=== PATIENT | female | born 1990 | race Caucasian/White ===

== ENCOUNTER 2017-01-10 09:09 | Outpatient (CLI) | payer MEDICAID ==
[2017-01-10 10:07] LABS: APPEARANCE,URINE SLIGHTLY-CLOUDY; BILIRUBIN,URINE NEGATIVE (NEGATIVE); CALCIUM OXALATE CRYSTALS,URINE TOO NUMEROUS TO CNT /HPF; GLUCOSE, URINE NEGATIVE (NEGATIVE); KETONES,URINE NEGATIVE (NEGATIVE); LEUKOCYTE ESTERASE,URINE NEGATIVE (NEGATIVE); NITRITE,URINE NEGATIVE (NEGATIVE); PROTEIN,URINE NEGATIVE (NEGATIVE); URINE SPECIFIC GRAVITY 1.018; UROBILINOGEN,URINE NEGATIVE mg/dL (<2.0)
[2017-01-10 10:16] LABS: ABSOLUTE EOSINOPHILS # (AUTO) 0.1 10^3/uL (0.0-0.6); ABSOLUTE LYMPHOCYTES (AUTO) 1.6 10^3/uL (0.5-4.7); ABSOLUTE MONOCYTES (AUTO) 0.6 10^3/uL (0.1-1.4); BASOPHILS % (AUTO) 0.3 % (0-2); EOSINOPHILS % (AUTO) 1.4 % (0-6); HEMATOCRIT 30.1 % (36.0-47.0); HEMOGLOBIN 10.3 g/dL (12.0-15.5); HGB HCT DIFFERENCE 0.8; LYMPHOCYTES % (AUTO) 21.7 % (13-45); MEAN CORPUSCULAR HEMOGLOBIN 32.6 pg (27.0-33.4); MEAN CORPUSCULAR HGB CONC 34.1 g/dL (32.0-36.0); MEAN CORPUSCULAR VOLUME 96 fl (80-97); MONOCYTES % (AUTO) 7.8 % (3-13); RED BLOOD COUNT 3.15 10^6/uL (3.72-5.28); RED CELL DISTRIBUTION WIDTH 13.8 % (11.5-14.0); SEGMENTED NEUTROPHILS % (AUTO) 68.8 % (42-78); WHITE BLOOD COUNT 7.3 10^3/uL (4.0-10.5)
[2017-01-10 10:35] LABS: URINE BARBITURATES SCREEN NEGATIVE; URINE METHADONE SCREEN NEGATIVE; URINE OPIATES LOW NEGATIVE; URINE PHENCYCLIDINE SCREEN NEGATIVE
[2017-01-10 11:05] LABS: ALANINE AMINOTRANSFERASE 24 U/L (9-52); ALBUMIN 3.2 g/dL (3.5-5.0); ALKALINE PHOSPHATASE 86 U/L (38-126); ANION GAP 9 (5-19); ASPARTATE AMINO TRANSFERASE 17 U/L (14-36); BILIRUBIN,DIRECT 0.2 mg/dL (0.0-0.4); BILIRUBIN,TOTAL 0.2 mg/dL (0.2-1.3); BLOOD UREA NITROGEN 8 mg/dL (7-20); CARBON DIOXIDE 23 mmol/L (22-30); CHLORIDE 106 mmol/L (98-107); CREATININE RESULT 0.59 mg/dL (0.52-1.25); GLUCOSE 118 mg/dL (75-110); LDH 379 U/L (313-618); SODIUM 137.8 mmol/L (137-145); TOTAL PROTEIN 5.8 g/dL (6.3-8.2); URIC ACID 3.6 mg/dL (2.5-6.2)
[2017-01-10 11:07] LABS: URINE CREATININE 151.9 mg/dL (16-327); URINE PROTEIN 10.7 mg/dL (<12)
== END 2017-01-10 11:55 | disposition home or self-care (01) ==
LOC: LC 09:09
PROVIDERS: ATTEND Obstetrics & Gynecology
PROC: 4A1HXCZ Monitoring of Products of Conception, Cardiac Rate, External Approach (ICD-10-PCS; principal; 2017-01-10)
DX: Z36 Encounter for antenatal screening of mother (principal); Z13.6 Encounter for screening for cardiovascular disorders; Z3A.34 34 weeks gestation of pregnancy
CPT/HCPCS: 36415; 59025; 80053; 80307; 81001; 82570; 83615; 84156; 84550; 85025

== ENCOUNTER 2017-01-25 14:54 | Emergency (ER) | payer MEDICAID ==
[2017-01-25 14:59] VITALS: BP 136/88
[2017-01-25] MEDS ORDERED: DIPHENHYDRAMINE HCL 50 MG CAPSULE PO ONE (16:00)
--- NOTE | 2017-01-25 16:05 | ER Document Report ---
ED Skin Rash/Insect Bite/Abscs - General Chief Complaint: Insect Bite Stated Complaint: POSSIBLE INSECT BITE Time Seen by Provider: 01/25/17 15:21 Mode of Arrival: Ambulatory Information source: Patient Notes: 6-year-old female presents to ED for an insect bite to the left side of her face. She states it was a couple days ago and the swelling has become worse. She states she took Benadryl yesterday and used compresses. She states she is 37 weeks and wanted to make sure that there was no problems with the swelling to her face. She states she is having no complications with the right now that she is preeclamptic and they do plan to take her child by early due to the pre-eclampsia. TRAVEL OUTSIDE OF THE [place] IN LAST 30 DAYS: No - HPI Patient complains to provider of: Insect bite Onset: Other - 2 days ago Onset/Duration: Gradual Quality of pain: Pressure Severity: Mild Pain Level: 2 Skin Character: Other - Swelling to the left side of her face due to an insect bite Quality of rash: Itchy, Painful - Mild Identify cause: Yes - Insect bite Exacerbated by: Denies Relieved by: Denies Similar symptoms previously: No Recently seen / treated by doctor: Yes - Related Data Allergies/Adverse Reactions: No Known Allergies Allergy (Verified 01/25/17 14:56) Past Medical History - General Information source: Patient - Social History Smoking Status: Never Smoker Cigarette use (# per day): No Chew tobacco use (# tins/day): No Smoking Education Provided: No Frequency of alcohol use: None Drug Abuse: None Lives with: Family Family History: Reviewed & Not Pertinent Patient has suicidal ideation: No Patient has homicidal ideation: No - Past Medical History Cardiac Medical History: Reports: Hx Hypertension - Pulmonary Medical History: Reports: None EENT Medical History: Reports: None Neurological Medical History: Reports: None Endocrine Medical History: Reports: Hx Diabetes Mellitus Type 2 - Gestational diabetes Renal/ Medical History: Reports: Hx Ovarian Cysts, Other - pre-eclampsia Malignancy Medical History: Reports: None GI Medical History: Reports: None Musculoskeltal Medical History: Reports None Skin Medical History: Reports None Psychiatric Medical History: Reports: None Traumatic Medical History: Reports: None Infectious Medical History: Reports: None Past Surgical History: Reports: Hx Section - Immunizations Hx Diphtheria, Pertussis, Tetanus Vaccination: Yes Review of Systems - Review of Systems Constitutional: No symptoms reported EENT: No symptoms reported. denies: Throat swelling, Mouth swelling Cardiovascular: No symptoms reported. denies: Dyspnea Respiratory: No symptoms reported Gastrointestinal: No symptoms reported Genitourinary: No symptoms reported Female Genitourinary: No symptoms reported Musculoskeletal: No symptoms reported Skin: Other - Insect bite to the left side of her face with local swelling Hematologic/Lymphatic: No symptoms reported Neurological/Psychological: No symptoms reported -: Yes All other systems reviewed and negative Physical Exam - Vital signs Vitals: Temp Pulse Resp BP Pulse Ox 97.8 F 74 20 136/88 H 100 01/25/17 14:56 01/25/17 14:56 01/25/17 14:56 01/25/17 14:56 01/25/17 14:56 Interpretation: Normal - General General appearance: Appears well, Alert - HEENT Head: Normocephalic, Atraumatic Eyes: Normal Pupils: PERRL Ears: Normal External canal: Normal Tympanic membrane: Normal Sinus: Normal Nasal: Normal Mouth/Lips: Normal Mucous membranes: Normal Pharynx: Normal Neck: Normal Notes: No swelling to the left side of her face from above her lip to below her eye no lip swelling no periorbital edema no swelling to the tongue or mucosa. - Respiratory Respiratory status: No respiratory distress Chest status: Nontender Breath sounds: Normal Chest palpation: Normal - Cardiovascular Rhythm: Regular Heart sounds: Normal auscultation Murmur: No - Abdominal Inspection: Normal Distension: No distension Bowel sounds: Normal Tenderness: Nontender Organomegaly: No organomegaly - Back Back: Normal, Nontender - Extremities General upper extremity: Normal inspection, Nontender, Normal color, Normal ROM , Normal temperature General lower extremity: Normal inspection, Nontender, Normal color, Normal ROM , Normal temperature, Normal weight bearing. No: Jason's sign - Neurological Neuro grossly intact: Yes Cognition: Normal Orientation: AAOx4 Peculiar Coma Scale Eye Opening: Spontaneous Peculiar Coma Scale Verbal: Oriented Peculiar Coma Scale Motor: Obeys Commands Aron Coma Scale Total: 15 Speech: Normal Motor strength normal: LUE, RUE, LLE, RLE Sensory: Normal - Psychological Associated symptoms: Normal affect, Normal mood - Skin Skin Temperature: Warm Skin Moisture: Dry Skin Color: Normal Course - Re-evaluation Re-evalutation: 01/25/17 20:[address] [facility] and he stated it was okay to give her Benadryl at her advanced age of . She is about 37 weeks and plans to have a next week due to preeclampsia. - Vital Signs Vital signs: Temp Pulse Resp BP Pulse Ox 97.8 F 74 20 136/88 H 100 01/25/17 14:56 01/25/17 14:56 01/25/17 14:56 01/25/17 14:56 01/25/17 14:56 Discharge - Discharge Clinical Impression: Insect bite of face with local reaction Qualifiers: Encounter type: initial encounter Qualified Code(s): S00.86XA - Insect bite ( nonvenomous) of other part of head, initial encounter Condition: Stable Disposition: HOME, SELF-CARE Additional Instructions: Insect Bites You have been bitten by an insect. These bites can cause two types of swelling: an initial swelling due to insect saliva or injected poison, and a late reaction due to your body's allergic reaction. This initial local reaction may be uncomfortable but is not dangerous. Often there's an itchy "hive" at the bite location. This is treated with antihistamines, cold compresses, and resting the affected body part. The later reaction often develops about the second day. The entire area becomes very swollen, red, itchy, and tender. This is an allergic reaction. Your body is attacking the leftover insect saliva or venom. This type of allergy is unpleasant, but not dangerous. We treat this swelling with cortisone -type medicine. Sometimes we use antibiotics if we're worried about infection. Antihistamines help with the itch. If you develop a fever, chills, a red streak, or swollen glands in the area of the bite, infection may be starting. Return at once. Diphenhydramine The use of diphenhydramine (Benadryl) has been recommended to control allergic symptoms. The 25 mg strength is available over- the-counter, as well as the elixir. This antihistamine is used for many symptoms. It's useful for itching, watering eyes and nose, allergic swelling, hives, and insect stings. The medication can be repeated four times daily. Age Elixir (12.5 mg/tsp) 25 mg pill 1 yr 1/4 tsp 2-3 yr 1/2 tsp 4-8 yr 1 tsp 9-14 yr 2 tsp one tab adult 1-2 tabs Antihistamines may cause drowsiness, especially with the first dose. Do not operate machinery or drive while under the effects of the medication. Do not combine the medication with alcohol, or with any other medication without talking to your doctor. Ice Packs Apply ice packs frequently against the painful area. Many different schedules are recommended, such as "20 minutes on, 20 minutes off" or "one hour ice, two hours rest." If you need to work, you may need to go longer between ice treatments. You should plan to have the area ice packed AT LEAST one fourth of the time. The ice should be applied over the wrap, tape, or splint, or over a layer of cloth -- not directly against the skin. Some ice bags have a built-in cloth and can be put directly on the skin. FOLLOW-UP CARE: If you have been referred to a physician for follow-up care, call the physician s office for an appointment as you were instructed or within the next two days. If you experience worsening or a significant change in your symptoms, notify the physician immediately or return to the Emergency Department at any time for re-evaluation. Please complete the patient's satisfaction survey if you get one and return. If you do not receive a survey you can go to [facility] website [email or web address] and place your comments about your very good care. Thank you very much. It was a pleasure be in your medical provider today. Referrals: [facility] [Provider Group] - Follow up as needed
== END 2017-01-25 16:15 | disposition home or self-care (01) ==
LOC: ER 14:54
DX: O9A.213 Injury, poisoning and certain other consequences of external causes complicating pregnancy, third trimester (principal); S00.86XA Insect bite (nonvenomous) of other part of head, initial encounter; W57.XXXA Bitten or stung by nonvenomous insect and other nonvenomous arthropods, initial encounter; O14.93 Unspecified pre-eclampsia, third trimester; Z3A.37 37 weeks gestation of pregnancy; Z86.32 Personal history of gestational diabetes
CPT/HCPCS: 99281; J3490

== ENCOUNTER 2017-01-30 05:20 | Inpatient (IN) | payer MEDICAID ==
[2017-01-27 12:02] LABS: APPEARANCE,URINE CLEAR; BILIRUBIN,URINE NEGATIVE (NEGATIVE); GLUCOSE, URINE NEGATIVE (NEGATIVE); KETONES,URINE NEGATIVE (NEGATIVE); LEUKOCYTE ESTERASE,URINE NEGATIVE (NEGATIVE); NITRITE,URINE NEGATIVE (NEGATIVE); PROTEIN,URINE NEGATIVE (NEGATIVE); URINE SPECIFIC GRAVITY 1.016; UROBILINOGEN,URINE NEGATIVE mg/dL (<2.0)
[2017-01-27 13:21] LABS: URINE BARBITURATES SCREEN NEGATIVE; URINE METHADONE SCREEN NEGATIVE; URINE OPIATES LOW NEGATIVE; URINE PHENCYCLIDINE SCREEN NEGATIVE
[2017-01-28 15:01] LABS: ABSOLUTE EOSINOPHILS # (AUTO) 0.2 10^3/uL (0.0-0.6); ABSOLUTE LYMPHOCYTES (AUTO) 1.8 10^3/uL (0.5-4.7); ABSOLUTE MONOCYTES (AUTO) 0.5 10^3/uL (0.1-1.4); ABSOLUTE NEUT (AUTO) 5.1 10^3/uL (1.7-8.2); BASOPHILS % (AUTO) 0.4 % (0-2); EOSINOPHILS % (AUTO) 2.9 % (0-6); HEMATOCRIT 34.8 % (36.0-47.0); HEMOGLOBIN 11.8 g/dL (12.0-15.5); HGB HCT DIFFERENCE 0.6; LYMPHOCYTES % (AUTO) 23.7 % (13-45); MEAN CORPUSCULAR HEMOGLOBIN 32.7 pg (27.0-33.4); MEAN CORPUSCULAR HGB CONC 33.8 g/dL (32.0-36.0); MEAN CORPUSCULAR VOLUME 97 fl (80-97); MONOCYTES % (AUTO) 6.3 % (3-13); RED CELL DISTRIBUTION WIDTH 13.7 % (11.5-14.0); SEGMENTED NEUTROPHILS % (AUTO) 66.7 % (42-78); WHITE BLOOD COUNT 7.7 10^3/uL (4.0-10.5)
[~2017-01-30 05:20] MED LIST: LACTATED RINGERS 1000 ML IV PRN; LIDOCAINE 0.5% INJ-PF (5 MG/ML) 50 ML SDV SUBCUT PRN; RINGERS SOLUTION,LACTATED 2,000 ML IV PRN
[2017-01-30] MEDS ORDERED: MIDAZOLAM 2 MG/2 ML INJ ONE (07:14)
[2017-01-30] MEDS ORDERED: OXYTOCIN/NORMAL SALINE 20 UNIT/1,000 ML RTUINJ ONE (07:14)
[2017-01-30] MEDS ORDERED: OXYTOCIN 10 UNIT/ML VIAL ONE (07:14)
[2017-01-30] MEDS ORDERED: EPHEDRINE SULFATE INJ 50 MG/1 ML AMPULE ONE (07:14)
[2017-01-30] MEDS ORDERED: METHYLERGONOVINE MALEATE INJ/PF 0.2 MG/1 ML AMPULE ONE (07:14)
[2017-01-30] MEDS ORDERED: FENTANYL CITRATE INJ/PF 100 MCG/2 ML AMPUL ONE (07:14)
[2017-01-30] MEDS ORDERED: ACETAMINOPHEN 100 ML IV ONE (07:15)
[2017-01-30] MEDS: CEFAZOLIN 1 GM/D5W RTU 1 GM/50 ML RTUPB IV PRN ×2 (07:45→14:37)
[2017-01-30] MEDS ORDERED: PROMETHAZINE HCL INJ 25 MG/1 ML VIAL IV PRN ×3 (07:57→09:35)
[2017-01-30] MEDS ORDERED: MORPHINE SULFATE 10 MG/ML INJ IV PRN (07:57)
[2017-01-30] MEDS ORDERED: OXYCODONE-ACETAMINOPHEN 5-325 MG TABLET PO PRN ×3 (07:57→09:35)
[2017-01-30] MEDS ORDERED: MEPERIDINE HCL/PF INJ 25 MG/1 ML DISP.SYRIN IV PRN (07:57)
[2017-01-30] MEDS ORDERED: FENTANYL CITRATE INJ/PF 100 MCG/2 ML AMPUL IV PRN ×3 (07:57)
[2017-01-30] MEDS ORDERED: ONDANSETRON HCL INJ/PF 4 MG/2 ML SDV IV PRN (07:57)
[2017-01-30] MEDS ORDERED: DIPHENHYDRAMINE HCL 50 MG/ML VIAL IV PRN (07:57)
[2017-01-30] MEDS ORDERED: ACETAMINOPHEN 100 ML IV PRN (09:35)
[2017-01-30] MEDS ORDERED: MEASLES,MUMPS&RUBELLA VACC/PF 0.5 ML VIAL SUBCUT PRN (09:35)
[2017-01-30] MEDS ORDERED: OXYTOCIN/NORMAL SALINE 1,000 ML IV PRN (09:35)
[2017-01-30] MEDS ORDERED: DIPH/PERTUSS(ACELL)/TETANUS VAC/PF 0.5 ML SYR (>=10YO) IM PRN (09:35)
[2017-01-30] MEDS ORDERED: ACETAMINOPHEN 325 MG TABLET PO PRN (09:35)
--- NOTE | 2017-01-30 09:35 | Brief Operative Note ---
BRIEF OPERATIVE REPORT DATE OF SURGERY: 01/30/17 TIME OF SURGERY: 09:15 PREOPERATIVE DIAGNOSIS: , PUND at 37+1ega, Prior C/S for failure to Progress , PreE POSTOPERATIVE DIAGNOSIS: TONYA - delivered SURGEON: ORLY GONZALEZ FINDINGS: normal bilateral tubes/ovaries, minimal scaring intrabdminal noted, VFI, APgars 8/9, Wigth 6#4oz, cephalic presentation. COMPLICATIONS: None ESTIMATED BLOOD LOSS: 700ml TISSUE REMOVED OR ALTERED: placenta and cord - not sent to pathology TECHNICAL PROCEDURE: Repeat Low transverse Section.
[2017-01-30] MEDS: PRENATAL VITAMIN W-O CA NO5/FE FUMARATE/FA CAPSULE PO SCH (12:34)
[2017-01-30] MEDS: OXYCODONE-ACETAMINOPHEN 5-325 MG TABLET PO PRN ×3 (12:46→23:59)
[2017-01-30] MEDS ORDERED: GLYCOPYRROLATE INJ 0.4 MG/2 ML VIAL ONE (13:24)
[2017-01-30] MEDS ORDERED: ONDANSETRON HCL INJ/PF 4 MG/2 ML SDV ONE (13:24)
[2017-01-30] MEDS ORDERED: KETOROLAC TROMETHAMINE 60 MG/2 ML SDV ONE (13:24)
[2017-01-30] MEDS ORDERED: PHENYLEPHRINE HCL INJ/PF 10 MG/1 ML SDV ONE (13:24)
[2017-01-30] MEDS ORDERED: METOCLOPRAMIDE HCL INJ/PF 10 MG/2 ML SDV ONE (13:24)
[2017-01-30] MEDS: KETOROLAC TROMETHAMINE INJ/PF 30 MG/1 ML SDV IV SCH ×2 (13:50→21:21)
[2017-01-30] MEDS: DOCUSATE SODIUM 100 MG CAPSULE PO SCH (17:21)
[2017-01-30] MEDS: SIMETHICONE 80 MG TAB.CHEW PO PRN ×2 (17:22→23:51)
--- NOTE | 2017-01-30 20:19 | PDOC DELIVERY SUMMARY ---
Delivery Summary - Maternal Hx : IV Hx Para: I Hx # Term Pregnancies: 1 Hx Total # of Abortions (Sponateous & Elective): 2 Number of Living Children: 1 BRITTANEY: 02/19/17 Gestational Age: 37+1 Ruptured Membranes: AROM Time of Rupture: 08:12 Fluids: Clear - Delivery Labor: Not In Labor Presentation: Vertex Heart Rate Monitoring: Done Pre-Operatively Uterine Contraction Monitoring: External Support Person Present: Yes Location: OR : Scheduled, Repeat Placenta: Within Normal Limits Nuchal Cord: No Delivery of Placenta Date: 01/30/17 Delivery of Placenta Time: 08:15 - Medications Type of Anesthesia:: Spinal - Intrapartum Medications Intrapartum Medications: Pitocin - Infant Assess and Care Baby 1 Female Delivery of Date: 01/30/17 Delivery of Infant Time: 08:14 at 1 minute: 8 at 5 minutes: 9 Preprinted Number On Band: [id number] Infant Skin to Skin: No To Nursery At: 08:20 Mode of Transport: Bassinet Delivery Weight: 6.4 kg Infant Delivery Length: 19.5 in - Delivery Personnel State Game Warden: JUNO GUZMAN RN: MONET MCCRAY RN: FANY NOGUEIRA RN: DEREK RETANA MD: ORLY GONZALEZ
[2017-01-31] MEDS: OXYCODONE-ACETAMINOPHEN 5-325 MG TABLET PO PRN ×5 (03:51→22:10)
[2017-01-31] MEDS ORDERED: IBUPROFEN 800 MG TABLET PO SCH (04:00)
[2017-01-31] MEDS: KETOROLAC TROMETHAMINE INJ/PF 30 MG/1 ML SDV IV SCH (05:17)
[2017-01-31 05:36] LABS: HEMATOCRIT 25.5 % (36.0-47.0); MEAN CORPUSCULAR HEMOGLOBIN 32.4 pg (27.0-33.4); MEAN CORPUSCULAR HGB CONC 33.1 g/dL (32.0-36.0); MEAN CORPUSCULAR VOLUME 98 fl (80-97); RED BLOOD COUNT 2.61 10^6/uL (3.72-5.28); WHITE BLOOD COUNT 11.3 10^3/uL (4.0-10.5)
[2017-01-31 05:46] LABS: HEMOGLOBIN 8.5 g/dL (12.0-15.5)
[2017-01-31] MEDS: SIMETHICONE 80 MG TAB.CHEW PO PRN ×2 (07:33→20:23)
[2017-01-31] MEDS: DOCUSATE SODIUM 100 MG CAPSULE PO SCH ×2 (10:14→17:42)
[2017-01-31] MEDS: PRENATAL VITAMIN W-O CA NO5/FE FUMARATE/FA CAPSULE PO SCH (10:14)
[2017-01-31] MEDS: IBUPROFEN 800 MG TABLET PO SCH ×3 (12:19→23:41)
--- NOTE | 2017-01-31 14:08 | PDOC PROGRESS REPORT ---
Subjective-OB Subjective: Post Delivery Day: 26 year old. Denies any needs at this time s/p repeat c section sitting up in bed offers no complaints abdominal binding in place incision dry and intact +flatus, -bm encouraged increased ambulation denies dizziness or weakness despite anemia pt to start taking iron bid with increased iron rich diet- learning verbalized anticipate d/c in AM Physical Exam (OB) Vital Signs: Temp Pulse Resp BP Pulse Ox 97.9 F 89 16 128/93 H 99 01/31/17 11:45 01/31/17 11:45 01/31/17 11:45 01/31/17 11:45 01/31/17 11:45 Intake & Output 01/30/17 01/31/17 02/01/17 06:59 06:59 06:59 Intake Total 3545 Output Total 4200 Balance -655 Weight 66.68 kg - PIH/Pre-Eclampsia DTR's: 1 + Clonus: Negative Headache: Absent Epigastric Pain: No Visual Changes: No - Dressing Removed: Yes Incision: Open, Well Approximated Closure Type: Surgical Glue - Lochia Lochia Amount: Scant < 10 ml Lochia Color: Rubra/Red - Abdomen Description: Round Hernia Present: No Fundal Description: Firm, Midline Fundal Height: u/u - u/2 Objective-Diagnostic Laboratory: 01/31/17 05:25 01/28/17 01/31/17 13:33 05:25 WBC 11.3 H RBC 2.61 L Hgb 8.5 L D Hct 25.5 L MCV 98 H MCH 32.4 MCHC 33.1 RDW 14.0 Plt Count 137 L Blood Type A POSITIVE Antibody Screen POSITIVE
[2017-02-01] MEDS: OXYCODONE-ACETAMINOPHEN 5-325 MG TABLET PO PRN ×4 (03:52→17:41)
[2017-02-01] MEDS: IBUPROFEN 800 MG TABLET PO SCH ×3 (05:54→17:35)
--- NOTE | 2017-02-01 10:12 | PDOC PROGRESS REPORT ---
Subjective-OB Subjective: Post Delivery Day: 26 year old. Denies any needs at this time Doing well, ready to go home, hsb at BS, bottle feeding, voiding, passing gas, eating well, no c/o Physical Exam (OB) Vital Signs: Temp Pulse Resp BP Pulse Ox 98.1 F 82 15 119/73 99 02/01/17 07:57 02/01/17 07:57 02/01/17 07:57 02/01/17 07:57 02/01/17 07:57 Intake & Output 01/31/17 02/01/17 02/02/17 06:59 06:59 06:59 Intake Total 3545 Output Total 4200 Balance -655 - PIH/Pre-Eclampsia DTR's: 1 + Clonus: Negative Headache: Absent Epigastric Pain: No Visual Changes: No - Dressing Removed: No Incision: Well Approximated Closure Type: Surgical Glue - Lochia Lochia Amount: Small 10-25 ml Lochia Color: Rubra/Red - Abdomen Description: Soft Hernia Present: No Fundal Description: Firm, Midline Fundal Height: u/u - u/2 Objective-Diagnostic Laboratory: 01/31/17 05:25 01/28/17 13:33 Blood Type A POSITIVE Antibody Screen POSITIVE Assessment and Plan(PN) - Assessment and Plan (1) Gestational [-induced] hypertension without significant proteinuria , complicating childbirth Is this a current diagnosis for this admission?: Yes (2) Anxiety Is this a current diagnosis for this admission?: Yes (3) Gestational diabetes mellitus Qualifiers: Gestational diabetes mellitus control: diet-controlled Trimester: second trimester Qualified Code(s): O24.410 - Gestational diabetes mellitus in , diet controlled Is this a current diagnosis for this admission?: Yes (4) Delivery by section of full-term Is this a current diagnosis for this admission?: Yes - Time Spent with Patient Time with patient: Less than 15 minutes Medications reviewed and adjusted accordingly: Yes - Disposition Anticipated Discharge: Home Within: Other - home today
--- NOTE | 2017-02-01 10:15 | PDOC DISCHARGE SUMMARY ---
Final Diagnosis Discharge Date: 02/01/17 - Final Diagnosis (1) Gestational [-induced] hypertension without significant proteinuria , complicating childbirth Is this a current diagnosis for this admission?: Yes (2) Anxiety Is this a current diagnosis for this admission?: Yes (3) Gestational diabetes mellitus Is this a current diagnosis for this admission?: Yes (4) Delivery by section of full-term infant Is this a current diagnosis for this admission?: Yes Discharge Data - Discharge Medication Home Medications: Ferrous Sulfate [Iron] 1 tab PO TID 01/10/17 Vit #76/Iron,Carb/FA [Prenatabs Rx Tablet] 1 tab PO DAILY 01/10/17 Tramadol HCl 50 mg PO BID 01/24/17 Ibuprofen [Motrin 800 mg Tablet] 800 mg PO Q6 #60 tablet 02/01/17 Oxycodone HCl/Acetaminophen [Percocet 5-325 mg Tablet] 1 tab PO Q4HP PRN #30 tablet 02/01/17 Reason(s) for Admission: Ceasarean Section-Repeat Procedures: NST, Ultrasound Intrapartum Procedure(s): : Low Cervical, Transverse - Iaeger Data Baby 1 Female Home with Mother: Yes Complications: No - Diagnosis Test Laboratory: Temp Pulse Resp BP Pulse Ox 98.1 F 82 15 119/73 99 02/01/17 07:57 02/01/17 07:57 02/01/17 07:57 02/01/17 07:57 02/01/17 07:57 01/27/17 01/28/17 01/31/17 11:25 13:33 05:25 RBC 3.60 L 2.61 L Hgb 11.8 L 8.5 L D Hct 34.8 L 25.5 L Urine Opiates Screen NEGATIVE - Discharge information/Instructions Discharge Activity: Activity As Tolerated, Balance Activity w/Rest Discharge Diet: As Tolerated, Regular Disposition: HOME, SELF-CARE Follow up with: [facility] in: 1, Weeks
[2017-02-01] MEDS: DOCUSATE SODIUM 100 MG CAPSULE PO SCH ×2 (11:01→17:35)
[2017-02-01] MEDS: PRENATAL VITAMIN W-O CA NO5/FE FUMARATE/FA CAPSULE PO SCH (11:03)
[2017-02-01 16:36] VITALS: BP 140/89
--- NOTE | 2017-03-03 08:08 | Operative Report ---
Operative Report DATE OF SURGERY: 01/30/17 PREOPERATIVE DIAGNOSIS: , PUND at 37+1ega, Prior C/S for failure to Progress , PreE POSTOPERATIVE DIAGNOSIS: TONYA - delivered OPERATION: Repeat Low transverse Section. SURGEON: ORLY GONZALEZ ANESTHESIA: Spinal TISSUE REMOVED OR ALTERED: placenta and cord - not sent to pathology ESTIMATED BLOOD LOSS: 700ml INTRAOPERATIVE FINDINGS: normal bilateral tubes/ovaries, minimal scaring intrabdminal noted, VFI, APgars 8/9, Wigth 6#4oz, cephalic presentation. PROCEDURE: Anesthesia: Spinal Anesthesia provider: [Addis SHEPARD, Senait Agustin CRNA] Estimated blood loss: [700ml] Urine output: [200ml] IV fluids: [1700ml] Indications: [26yo at 37+1ega with A1GDM, PreE and history of prior section presents for repeat section. The Risks benefits and alternatives were reviewed and the patient desires to proceed.] Procedure: The patient was taken to the operating room where spinal anesthesia was obtained and found to be adequate. She was then prepped and draped in the normal sterile fashion and placed in the dorsal supine position with a leftward tilt. A Pfannenstiel skin incision was then made and carried through to the underlying layers of the fascia with the scalpel. The fascia was incised in the midline and the incision extended laterally with the Mathis scissors. The superior aspect of the fascial incision was then grasped with Sturgis clamps elevated and the underlying rectus muscles dissected off [bluntly]. Attention was then turned to the inferior aspect of the fascial incision which in a similar fashion was grasped, tented up with Saurabh clamps, and the rectus muscles dissected off [bluntly]. The rectus muscles were then in the midline and the peritoneum at the amount identified and entered [bluntly]. The peritoneal incision was then extended superiorly and inferiorly with good visualization of the bladder. The bladder blade was inserted and the vesicouterine peritoneum identified grasped with Moldovan pickups and entered sharply with the Metzenbaum scissors. This incision was then extended laterally with the Metzenbaum scissors and a bladder flap created digitally. The bladder blade was then reinserted and the lower uterine segment incised in a transverse fashion with the scalpel. The uterine incision was then extended bluntly. The bladder blade was removed and the 's head was delivered from cephalic presentation atraumatically. The nose and mouth were suctioned and the cord doubly clamped and cut. And the was handed off to waiting pediatricians. The placenta was then delivered spontaneously and the uterus exteriorized and cleared of all clots and debris. The uterine incision was then repaired with 1- 0 Vicryl in a running locked fashion. A second layer of the same suture was used to obtain hemostasis via imbrication of the initial layer. The bladder flap was then repaired with 3-0 chromic in a running fashion. The uterus was returned to the patient's abdomen and Interceed was placed overlying the uterine incision to prevent adhesions. The gutters were cleared of all clots and debris. All operative sites were noted to be hemostatic. The fascia was reapproximated with 0 Vicryl in a running fashion from each lateral edge to the midline. The skin was closed with 3-0 Monocryl in a running subcuticular fashion with overlying Dermabond for additional dressing as well as wound closure. The patient tolerated the procedure well. Sponge lap needle and instrument counts are correct times 2. 2 g of Ancef were given prior to skin incision. The patient was taken to the recovery area awake and in stable condition.
== END 2017-02-01 19:00 | disposition home or self-care (01) | DRG 766 ==
LOC: 2S 05:20
PROVIDERS: ADMIT Student in an Organized Health Care Education/Training Program; ATTEND Student in an Organized Health Care Education/Training Program
PROC: 4A1HXCZ Monitoring of Products of Conception, Cardiac Rate, External Approach (ICD-10-PCS; 2017-01-30)
PROC: 10D00Z1 Extraction of Products of Conception, Low, Open Approach (ICD-10-PCS; principal; 2017-01-30 07:45)
DX: O34.211 Maternal care for low transverse scar from previous cesarean delivery (principal); O13.4 Gestational [pregnancy-induced] hypertension without significant proteinuria, complicating childbirth; O99.344 Other mental disorders complicating childbirth; F41.9 Anxiety disorder, unspecified; O24.420 Gestational diabetes mellitus in childbirth, diet controlled; Z82.3 Family history of stroke; Z80.0 Family history of malignant neoplasm of digestive organs; Z83.3 Family history of diabetes mellitus; Z82.49 Family history of ischemic heart disease and other diseases of the circulatory system; Z3A.37 37 weeks gestation of pregnancy; Z37.0 Single live birth
CPT/HCPCS: 1961; 36415; 59025; 80307; 81001; 82962; 85025; 85027; 86850; 86870; 86900; 86901; 86920; 86922; 94799; C1765; J0131; J0690; J1885; J2210; J2250; J2370; J2405; J2590; J2765; J3010; J3490; J7120

== ENCOUNTER 2017-11-04 10:17 | Emergency (ER) | payer MEDICAID ==
--- NOTE | 2017-11-04 10:43 | ER Document Report ---
ED Medical Screen (RME) - General Chief Complaint: Vag Bleeding, +preg <12wks Stated Complaint: VAGINAL BLEEDING, BLOOD PRESSURE ISSUE Time Seen by Provider: 11/04/17 10:27 Mode of Arrival: Ambulatory Information source: Patient Notes: This is a 27-year-old female 5 para 2, last normal menstrual period September (reports being 6 weeks by dates) who has been having some vaginal bleeding for the past week. Patient states she awoke usual state of health and at 9 PM while she was at work, she experienced near syncope (she felt like she was going to pass out), she did report chest heaviness and shortness of breath at that time. She states that the symptoms resolved when she went to lie down. Medications: None Allergies: None Blood type: Rh+ TRAVEL OUTSIDE OF THE [place] IN LAST 30 DAYS: No - Related Data Allergies/Adverse Reactions: No Known Allergies Allergy (Verified 11/04/17 10:18) Past Medical History - Social History Chew tobacco use (# tins/day): No Frequency of alcohol use: None Drug Abuse: None - Past Medical History Cardiac Medical History: Reports: Hx Hypertension - Denies: Hx Coronary Artery Disease, Hx Heart Attack, Hx Pulmonary Embolism, Hx Heart Murmur Pulmonary Medical History: Denies: Hx Bronchitis, Hx COPD, Hx Pneumonia Neurological Medical History: Denies: Hx Cerebrovascular Accident, Hx Migraine, Hx Seizures Endocrine Medical History: Reports: Hx Diabetes Mellitus Type 2 - Gestational diabetes. Denies: Hx Hyperthyroidism, Hx Hypothyroidism Renal/ Medical History: Reports: Hx Ovarian Cysts. Denies: Hx Ectopic , Hx Kidney Stones, Hx Peritoneal Dialysis, Hx Pelvic Inflammatory Disease Malignancy Medical History: Denies: Hx Breast Cancer, Hx Cervical Cancer, Hx Ovarian Cancer GI Medical History: Denies: Hx Cirrhosis, Hx Gastritis, Hx Gastroesophageal Reflux Disease, Hx Hiatal Hernia, Hx Ulcer, Hx Ulcerative Colitis Musculoskeltal Medical History: Denies Hx Arthritis, Denies Hx Fibromyalgia Skin Medical History: Denies Hx MRSA Traumatic Medical History: Denies: Hx Fractures Infectious Medical History: Denies: Hx HIV Past Surgical History: Reports: Hx Section. Denies: Hx Pacemaker - Immunizations Hx Diphtheria, Pertussis, Tetanus Vaccination: Yes Physical Exam - Vital signs Vitals: Temp Pulse Resp BP Pulse Ox 98.3 F 103 H 14 123/80 100 11/04/17 10:20 11/04/17 10:20 11/04/17 10:20 11/04/17 10:20 11/04/17 10:20 Course - Vital Signs Vital signs: Temp Pulse Resp BP Pulse Ox 98.3 F 103 H 14 123/80 100 11/04/17 10:20 11/04/17 10:20 11/04/17 10:20 11/04/17 10:20 11/04/17 10:20
[2017-11-04 11:05] LABS: ABSOLUTE BASOPHILS # (AUTO) 0.1 10^3/uL (0.0-0.2); ABSOLUTE LYMPHOCYTES (AUTO) 1.9 10^3/uL (0.5-4.7); ABSOLUTE MONOCYTES (AUTO) 0.6 10^3/uL (0.1-1.4); ABSOLUTE NEUT (AUTO) 4.6 10^3/uL (1.7-8.2); BASOPHILS % (AUTO) 0.7 % (0-2); EOSINOPHILS % (AUTO) 0.6 % (0-6); HEMATOCRIT 37.8 % (36.0-47.0); HEMOGLOBIN 12.9 g/dL (12.0-15.5); LYMPHOCYTES % (AUTO) 26.9 % (13-45); MEAN CORPUSCULAR HEMOGLOBIN 31.5 pg (27.0-33.4); MEAN CORPUSCULAR HGB CONC 34.1 g/dL (32.0-36.0); MEAN CORPUSCULAR VOLUME 92 fl (80-97); MONOCYTES % (AUTO) 8.1 % (3-13); PLATELET COUNT 282 10^3/uL (150-450); RED BLOOD COUNT 4.09 10^6/uL (3.72-5.28); RED CELL DISTRIBUTION WIDTH 12.5 % (11.5-14.0); SEGMENTED NEUTROPHILS % (AUTO) 63.7 % (42-78); TOTAL CELLS COUNTED % (AUTO) 100 %; WHITE BLOOD COUNT 7.2 10^3/uL (4.0-10.5)
[2017-11-04 11:23] LABS: ALANINE AMINOTRANSFERASE 25 U/L (9-52); ALBUMIN 4.8 g/dL (3.5-5.0); ALKALINE PHOSPHATASE 46 U/L (38-126); ANION GAP 13 (5-19); ASPARTATE AMINO TRANSFERASE 19 U/L (14-36); BILIRUBIN,DIRECT 0.3 mg/dL (0.0-0.4); BILIRUBIN,TOTAL 0.3 mg/dL (0.2-1.3); BLOOD UREA NITROGEN 10 mg/dL (7-20); CARBON DIOXIDE 24 mmol/L (22-30); CHLORIDE 103 mmol/L (98-107); GLUCOSE 82 mg/dL (75-110); POTASSIUM 4.1 mmol/L (3.6-5.0); SODIUM 140.4 mmol/L (137-145); TOTAL PROTEIN 7.7 g/dL (6.3-8.2)
--- NOTE | 2017-11-04 11:32 | ER Document Report ---
ED General - General Chief Complaint: Vag Bleeding, +preg <12wks Stated Complaint: VAGINAL BLEEDING, BLOOD PRESSURE ISSUE Time Seen by Provider: 11/04/17 10:27 Mode of Arrival: Ambulatory Notes: This is a 27-year-old female to emergency department chief complaint of vaginal bleeding. Patient thinks this is approximately 6 weeks . 2 prior miscarriages. Mild pain in the left lower quadrant. No vomiting. Also reports that shortly prior to the pain and vaginal bleeding she had an episode where her heart felt like it was racing. Did not feel like she was going to pass out. Only lasted for a few minutes and is back to normal. No other major symptoms at this time. TRAVEL OUTSIDE OF THE [place] IN LAST 30 DAYS: No - HPI Onset: Yesterday Onset/Duration: Gradual Severity: Moderate Pain Level: 2 Associated symptoms: None - Related Data Allergies/Adverse Reactions: No Known Allergies Allergy (Verified 11/04/17 10:18) Past Medical History - General Information source: Patient - Social History Smoking Status: Never Smoker Chew tobacco use (# tins/day): No Frequency of alcohol use: None Drug Abuse: None Lives with: Spouse/Significant other Family History: Reviewed & Not Pertinent Patient has suicidal ideation: No Patient has homicidal ideation: No - Past Medical History Cardiac Medical History: Reports: Hx Hypertension - Denies: Hx Coronary Artery Disease, Hx Heart Attack, Hx Pulmonary Embolism, Hx Heart Murmur Pulmonary Medical History: Denies: Hx Bronchitis, Hx COPD, Hx Pneumonia Neurological Medical History: Denies: Hx Cerebrovascular Accident, Hx Migraine, Hx Seizures Endocrine Medical History: Reports: Hx Diabetes Mellitus Type 2 - Gestational diabetes. Denies: Hx Hyperthyroidism, Hx Hypothyroidism Renal/ Medical History: Reports: Hx Ovarian Cysts. Denies: Hx Ectopic , Hx Kidney Stones, Hx Peritoneal Dialysis, Hx Pelvic Inflammatory Disease Malignancy Medical History: Denies: Hx Breast Cancer, Hx Cervical Cancer, Hx Ovarian Cancer GI Medical History: Denies: Hx Cirrhosis, Hx Gastritis, Hx Gastroesophageal Reflux Disease, Hx Hiatal Hernia, Hx Ulcer, Hx Ulcerative Colitis Musculoskeltal Medical History: Denies Hx Arthritis, Denies Hx Fibromyalgia Skin Medical History: Denies Hx MRSA Traumatic Medical History: Denies: Hx Fractures Infectious Medical History: Denies: Hx HIV Past Surgical History: Reports: Hx Section. Denies: Hx Pacemaker - Immunizations Hx Diphtheria, Pertussis, Tetanus Vaccination: Yes Review of Systems - Review of Systems Constitutional: No symptoms reported EENT: No symptoms reported Cardiovascular: No symptoms reported Respiratory: No symptoms reported Gastrointestinal: No symptoms reported Genitourinary: No symptoms reported Female Genitourinary: , Vaginal bleeding Musculoskeletal: No symptoms reported Skin: No symptoms reported Hematologic/Lymphatic: No symptoms reported Neurological/Psychological: No symptoms reported Physical Exam - Vital signs Vitals: Temp Pulse Resp BP Pulse Ox 98.3 F 103 H 14 123/80 100 11/04/17 10:20 11/04/17 10:20 11/04/17 10:20 11/04/17 10:20 11/04/17 10:20 Interpretation: Normal - General General appearance: Appears well, Alert - HEENT Head: Normocephalic, Atraumatic Eyes: Normal Pupils: PERRL - Respiratory Respiratory status: No respiratory distress Chest status: Nontender Breath sounds: Normal Chest palpation: Normal - Cardiovascular Rhythm: Regular Heart sounds: Normal auscultation Murmur: No - Abdominal Inspection: Normal Distension: No distension Bowel sounds: Normal Tenderness: Tender, Other - Mild tenderness palpation left lower quadrant. No: Guarding, Rebound Organomegaly: No organomegaly - Back Back: Normal, Nontender - Extremities General upper extremity: Normal inspection, Nontender, Normal color, Normal ROM , Normal temperature General lower extremity: Normal inspection, Nontender, Normal color, Normal ROM , Normal temperature, Normal weight bearing. No: Jason's sign - Neurological Neuro grossly intact: Yes Cognition: Normal Orientation: AAOx4 Marshall Coma Scale Eye Opening: Spontaneous Aron Coma Scale Verbal: Oriented Marshall Coma Scale Motor: Obeys Commands Marshall Coma Scale Total: 15 Speech: Normal Motor strength normal: LUE, RUE, LLE, RLE Sensory: Normal - Psychological Associated symptoms: Normal affect, Normal mood - Skin Skin Temperature: Warm Skin Moisture: Dry Skin Color: Normal Course - Re-evaluation Re-evalutation: 11/04/17 11:36 Well-appearing female in no acute distress with reported home test is positive. Getting basic labs. Pelvic ultrasound and reassess. 11/04/17 14:34 Laboratory 11/04/17 11/04/17 11/04/17 10:45 10:45 10:45 WBC 7.2 RBC 4.09 Hgb 12.9 Hct 37.8 MCV 92 MCH 31.5 MCHC 34.1 RDW 12.5 Plt Count 282 Seg Neutrophils % 63.7 Lymphocytes % 26.9 Monocytes % 8.1 Eosinophils % 0.6 Basophils % 0.7 Absolute Neutrophils 4.6 Absolute Lymphocytes 1.9 Absolute Monocytes 0.6 Absolute Eosinophils 0.0 Absolute Basophils 0.1 Sodium 140.4 Potassium 4.1 Chloride 103 Carbon Dioxide 24 Anion Gap 13 BUN 10 Creatinine 0.63 Est GFR ( Amer) > 60 Est GFR (Non-Af Amer) > 60 Glucose 82 Calcium 10.0 Total Bilirubin 0.3 Direct Bilirubin 0.3 Neonat Total Bilirubin Not Reportable Neonat Direct Bilirubin Not Reportable Neonat Indirect Bili Not Reportable AST 19 ALT 25 Alkaline Phosphatase 46 Total Protein 7.7 Albumin 4.8 Beta HCG, Quant 88570.00 H Total Beta HCG POSITIVE Urine Color STRAW Urine Appearance CLEAR Urine pH 7.0 Ur Specific Raymond 1.005 Urine Protein NEGATIVE Urine Glucose (UA) NEGATIVE Urine Ketones NEGATIVE Urine Blood SMALL H Urine Nitrite NEGATIVE Urine Bilirubin NEGATIVE Urine Urobilinogen NEGATIVE Ur Leukocyte Esterase NEGATIVE Urine WBC (Auto) 0 Urine RBC (Auto) 0 Squamous Epi Cells Auto 2 Urine Mucus (Auto) RARE Urine Ascorbic Acid NEGATIVE Transvaginal US 11/04/17 10:41 IMPRESSION: LIVING INTRAUTERINE . EGA 6 weeks 2 days Trimester of : First - 0 to 13 weeks. Patient has intrauterine . Labs unremarkable. Rh+. Comfortable at this time discharging. - Vital Signs Vital signs: Temp Pulse Resp BP Pulse Ox 98.3 F 103 H 14 123/80 100 11/04/17 10:20 11/04/17 10:20 11/04/17 10:20 11/04/17 10:20 11/04/17 10:20 - Laboratory Result Diagrams: 11/04/17 10:45 11/04/17 10:45 Laboratory results interpreted by me: 11/04/17 11/04/17 10:45 10:45 Beta HCG, Quant 16223.00 H Urine Blood SMALL H - EKG Interpretation by Co EKG shows normal: Sinus rhythm, [place], Intervals, QRS Complexes, ST-T Waves Discharge - Discharge Clinical Impression: Threatened miscarriage Condition: Good Disposition: HOME, SELF-CARE Instructions: ([facility]), Bleeding During Early ([facility]) Additional Instructions: In the event that the pain gets worse, worsening bleeding, any other concerns please return. Please follow-up with FOOD SERVICES DIRECTOR. Follow-up information provided. Referrals: BOYD NELSON MD [Primary Care Provider] - Follow up as needed
[2017-11-04 11:57] LABS: APPEARANCE,URINE CLEAR; BILIRUBIN,URINE NEGATIVE (NEGATIVE); COLOR,URINE STRAW; GLUCOSE, URINE NEGATIVE (NEGATIVE); KETONES,URINE NEGATIVE (NEGATIVE); LEUKOCYTE ESTERASE,URINE NEGATIVE (NEGATIVE); NITRITE,URINE NEGATIVE (NEGATIVE); PROTEIN,URINE NEGATIVE (NEGATIVE); URINE SPECIFIC GRAVITY 1.005; UROBILINOGEN,URINE NEGATIVE mg/dL (<2.0)
--- NOTE | 2017-11-04 13:51 | RADIOLOGY REPORT (SQ) ---
EXAM DESCRIPTION: U/S OB TRANSVAG W/DOPPLER COMPLETED DATE/TIME: 11/04/2017 1:21 pm REASON FOR STUDY: vaginal bleeding, preg COMPARISON: None. TECHNIQUE: Transvaginal static and realtime grayscale images acquired of the pelvis. Additional richelle cted spectral and color Doppler images recorded. All images stored on PACs. [facility] [place]: None. FINDINGS: FETUS: Living intrauterine . EGA: 6 weeks 2 days BRITTANEY: 06/28/2018 FHR: 122 beats per minute. SUBCHORIONIC BLEED: No. SIZE OF BLEED: Not applicable. UTERUS: No masses. No anomalies. CERVICAL LENGTH: 2.9 cm Closed. RIGHT ADNEXA: Normal ovary with normal vascular flow. No adnexal free fluid. 1.7 cm complex cyst LEFT ADNEXA: Normal ovary with normal vascular flow. No adnexal free fluid. 2.1 cm complex cyst FREE FLUID: None. OTHER: No other significant finding. IMPRESSION: LIVING INTRAUTERINE . EGA 6 weeks 2 days Trimester of : First - 0 to 13 weeks. TECHNICAL DOCUMENTATION: JOB ID: [id number] [employer]- All Rights Reserved Reading location - IP/workstation name: [email or web address]
[2017-11-04 15:07] VITALS: BP 114/74
--- NOTE | 2017-11-04 15:47 | EKG REPORT ---
SEVERITY:- NORMAL ECG - SINUS RHYTHM : Confirmed by: Александр Dorado 04-Nov-2017 15:47:31
== END 2017-11-04 15:07 | disposition home or self-care (01) ==
LOC: ER 10:17
DX: O20.0 Threatened abortion (principal); O26.899 Other specified pregnancy related conditions, unspecified trimester; R10.32 Left lower quadrant pain; Z3A.00 Weeks of gestation of pregnancy not specified; Z87.42 Personal history of other diseases of the female genital tract
CPT/HCPCS: 36415; 76817; 80053; 81001; 84702; 85025; 93005; 93010; 93976; 99284

== ENCOUNTER → 2018-02-16 | Outpatient (CLI) | payer MEDICAID | LOC: OD 15:44 | PROVIDERS: ATTEND Obstetrics & Gynecology | DX: O36.1120 Maternal care for Anti-A sensitization, second trimester, not applicable or unspecified (principal) | CPT/HCPCS: 36415; 86870; 86886 ==

== ENCOUNTER → 2018-03-23 | Outpatient (CLI) | payer MEDICAID | LOC: OD 13:42 | PROVIDERS: ATTEND Registered Nurse Women's Health Care, Ambulatory | DX: O36.0990 Maternal care for other rhesus isoimmunization, unspecified trimester, not applicable or unspecified (principal); Z3A.00 Weeks of gestation of pregnancy not specified | CPT/HCPCS: 36415; 86870; 86886 ==

== ENCOUNTER 2018-06-03 12:02 | Outpatient (CLI) | payer MEDICAID ==
--- NOTE | 2018-06-03 13:03 | Non Stress Test Report ---
Non Stress Test Datetime Report Generated by CPN: 06/03/2018 13:03 DEMOGRAPHIC Test Number: 1 EGA NST: 36.1 INDICATION Indication for Study: Chronic Hypertension Indication for Study (NST) Other: LC MONITORING Monitor Explained: Monitor Explained; Test Explained; Patient Verbalized Understanding Monitor Explained: Monitor Explained; Test Explained; Patient Verbalized Understanding Time on Monitor: 06/03/2018 12:27 Time off Monitor: 06/03/2018 12:47 NST Duration: 20 NST INTERVENTIONS NST Interventions: PO Hydration Physician Notified NST: Shawn MarchZUHAIR leonard Physician Notified NST: AngeloValentin MarchZUHAIR BABY A: [id number] BABY A Movement : Present Contraction Frequency : irregular FHR Baseline : 125 Accelerations : 15X15 Decelerations : None Variability : Moderate 6-25bpm NST Review: Meets Criteria for Reactive NST NST Review and Verified By : CARMEN Gabriel Results: Reactive NST REPORT Report Trigger: Send Report
== END 2018-06-03 13:03 | disposition home or self-care (01) ==
LOC: LC 12:02
PROVIDERS: ATTEND Obstetrics & Gynecology
PROC: 4A1HXCZ Monitoring of Products of Conception, Cardiac Rate, External Approach (ICD-10-PCS; principal; 2018-06-03)
DX: O47.03 False labor before 37 completed weeks of gestation, third trimester (principal); O10.913 Unspecified pre-existing hypertension complicating pregnancy, third trimester; Z3A.36 36 weeks gestation of pregnancy
CPT/HCPCS: 59025; 84112

== ENCOUNTER 2018-06-18 09:30 | Inpatient (IN) | payer MEDICAID ==
[2018-06-23 12:16] LABS: ABSOLUTE LYMPHOCYTES (AUTO) 1.8 10^3/uL (0.5-4.7); ABSOLUTE MONOCYTES (AUTO) 0.5 10^3/uL (0.1-1.4); ABSOLUTE NEUT (AUTO) 3.6 10^3/uL (1.7-8.2); BASOPHILS % (AUTO) 0.7 % (0-2); EOSINOPHILS % (AUTO) 0.7 % (0-6); HEMATOCRIT 33.2 % (36.0-47.0); HEMOGLOBIN 11.1 g/dL (12.0-15.5); LYMPHOCYTES % (AUTO) 29.8 % (13-45); MEAN CORPUSCULAR HGB CONC 33.3 g/dL (32.0-36.0); MEAN CORPUSCULAR VOLUME 87 fl (80-97); MONOCYTES % (AUTO) 8.3 % (3-13); PLATELET COUNT 178 10^3/uL (150-450); RED BLOOD COUNT 3.82 10^6/uL (3.72-5.28); RED CELL DISTRIBUTION WIDTH 16.2 % (11.5-14.0); SEGMENTED NEUTROPHILS % (AUTO) 60.5 % (42-78); TOTAL CELLS COUNTED % (AUTO) 100 %
[2018-06-23 12:41] LABS: APPEARANCE,URINE CLEAR; BILIRUBIN,URINE NEGATIVE (NEGATIVE); COLOR,URINE STRAW; GLUCOSE, URINE NEGATIVE (NEGATIVE); KETONES,URINE NEGATIVE (NEGATIVE); LEUKOCYTE ESTERASE,URINE NEGATIVE (NEGATIVE); NITRITE,URINE NEGATIVE (NEGATIVE); PROTEIN,URINE NEGATIVE (NEGATIVE); URINE SPECIFIC GRAVITY 1.008; UROBILINOGEN,URINE NEGATIVE mg/dL (<2.0)
[2018-06-23 13:27] LABS: URINE AMPHETAMINES SCREEN NEGATIVE; URINE BARBITURATES SCREEN NEGATIVE; URINE BENZODIAZEPINES SCREEN NEGATIVE; URINE COCAINE SCREEN NEGATIVE; URINE MARIJUANA (THC) SCREEN NEGATIVE; URINE PHENCYCLIDINE SCREEN NEGATIVE
[2018-06-23 13:37] LABS: URINE METHADONE SCREEN NEGATIVE
[2018-06-24] MEDS ORDERED: CEFAZOLIN 2 GM/D5W RTU 2 GM/50 ML RTUPB IV PRN (05:00)
[2018-06-24] MEDS ORDERED: LIDOCAINE 0.5% INJ-PF (5 MG/ML) 50 ML SDV SUBCUT PRN (05:00)
[2018-06-24] MEDS ORDERED: RINGERS SOLUTION,LACTATED 1,000 ML IV ONE (05:00)
[2018-06-24] MEDS ORDERED: LACTATED RINGERS 1000 ML IV PRN (05:00)
[2018-06-24] MEDS ORDERED: MORPHINE SULFATE 10 MG/ML INJ ONE (09:10)
[2018-06-24] MEDS ORDERED: FENTANYL CITRATE INJ/PF 100 MCG/2 ML AMPUL ONE (09:10)
[2018-06-24] MEDS ORDERED: ONDANSETRON HCL INJ/PF 4 MG/2 ML SDV ONE (09:10)
[2018-06-24] MEDS ORDERED: MIDAZOLAM 2 MG/2 ML INJ ONE (09:10)
[2018-06-24] MEDS ORDERED: OXYTOCIN 10 UNIT/ML VIAL ONE (09:11)
[2018-06-24] MEDS ORDERED: OXYTOCIN/NORMAL SALINE 20 UNIT/1,000 ML RTUINJ ONE (09:12)
[2018-06-24] MEDS ORDERED: BUPIVACAINE HCL/DEX-WATER/PF 15 MG/2 ML AMPULE ONE (09:14)
[2018-06-24] MEDS ORDERED: MORPHINE SULFATE 10 MG/ML INJ IV PRN (09:52)
[2018-06-24] MEDS ORDERED: OXYCODONE-ACETAMINOPHEN 5-325 MG TABLET PO PRN ×3 (09:52→12:14)
[2018-06-24] MEDS ORDERED: PROMETHAZINE HCL INJ 25 MG/1 ML VIAL IV PRN ×3 (09:52→12:14)
[2018-06-24] MEDS ORDERED: MEPERIDINE HCL/PF INJ 25 MG/1 ML DISP.SYRIN IV PRN (09:52)
[2018-06-24] MEDS ORDERED: DIPHENHYDRAMINE HCL 50 MG/ML VIAL IV PRN (09:52)
[2018-06-24] MEDS ORDERED: FENTANYL CITRATE INJ/PF 100 MCG/2 ML AMPUL IV PRN ×3 (09:52)
--- NOTE | 2018-06-24 10:21 | PDOC DELIVERY SUMMARY ---
Delivery Summary - Maternal Hx : V Hx # Term Pregnancies: 2 Hx Total # of Abortions (Sponateous & Elective): 2 BRITTANEY: 06/30/18 Gestational Age: 39.1 Ruptured Membranes: AROM Time of Rupture: 09:42 Fluids: Clear - Delivery Presentation: Vertex Heart Rate Monitoring: Done Pre-Operatively Support Person Present: Yes Location: OR Placenta: Within Normal Limits Delivery of Placenta Date: 06/24/18 Delivery of Placenta Time: 09:44 - Medications Type of Anesthesia:: Spinal - Infant Assess and Care Baby 1 Female Delivery of Date: 06/24/18 Delivery of Infant Time: 09:43 at 1 minute: 8 at 5 minutes: 9 Preprinted Number On Band: [id number] Infant Skin to Skin: No To Nursery At: 09:52 Mode of Transport: Bassinet Infant Delivery Weight: 2,820 Infant Delivery Length: 18.5 in - Delivery Personnel Digital Product Specialist: CHAIM HADLEY RN: MIR RN: LALA PUENTE MD: BOYD NELSON
--- NOTE | 2018-06-24 10:25 | Operative Report ---
Operative Report DATE OF SURGERY: 06/24/18 PREOPERATIVE DIAGNOSIS: Patient desires a repeat and tubal ligation POSTOPERATIVE DIAGNOSIS: Same OPERATION: Repeat via low transverse uterine incision tubal ligation with Filshie clips SURGEON: BOYD NELSON ANESTHESIA: Spinal TISSUE REMOVED OR ALTERED: Placenta COMPLICATIONS: None ESTIMATED BLOOD LOSS: 500 cc INTRAOPERATIVE FINDINGS: Viable female, normal uterus tubes ovaries PROCEDURE: Patient was taken to the OR and placed in supine position after her spinal anesthesia. She is prepared and draped in sterile fashion. Childress was placed for drainage of the bladder. Low transverse incision was made and carried down the level of the fascia. The fascial incision was made with knife and extended bilaterally with curved Mathis scissors. The fascia was off the rectus muscles using sharp and blunt dissection. The rectus muscles are in the midline. The peritoneum was entered without incident. Bladder blade was placed in uterine segment was identified. A low transverse incision was made creating a bladder flap. Bladder blade was placed low transverse uterine incision was made with the csafe knife and extended with fingertips. The baby was delivered with some fundal pressure. Mouth and nose were suctioned free. The cord is doubly clamped and cut. Baby is passed off to the hydrodynamicist in attendance. The placenta was manually extracted with trailing membranes. The uterus was externalized wrapped in a moist lap sponge. Uterine contents wiped free. Uterus was closed with a running locking layer of 0 chromic suture using the second layer to imbricate the first completing a double layer closure of the uterus. The serosa was closed with a running 2-0 chromic stitch. Each fallopian tube was followed out to its fimbriated end and Filshie clip then placed at mid isthmic portion bilaterally. The pelvis was irrigated and suctioned free of fluid the uterus was replaced in the abdomen. The abdominal wall peritoneum was closed with running 2-0 chromic stitch. Fascia was closed with a running 0 Vicryl in 2 segments. Bekah's layer was brought together with 0 plain gut stitch and the skin was closed with running subcuticular 4-0 undyed Vicryl stitch. The wound was dressed mother and baby did well.
[2018-06-24] MEDS: FENTANYL CITRATE INJ/PF 100 MCG/2 ML AMPUL ONE ×2 (11:15→11:30)
[2018-06-24] MEDS ORDERED: ACETAMINOPHEN 1,000 MG/100 ML RTUPB IV ONE (11:54)
[2018-06-24] MEDS ORDERED: ACETAMINOPHEN 1,000 MG/100 ML RTUPB IV PRN (12:14)
[2018-06-24] MEDS ORDERED: OXYTOCIN/NORMAL SALINE 20 UNIT/1,000 ML RTUINJ IV PRN (12:14)
[2018-06-24] MEDS ORDERED: MEASLES,MUMPS&RUBELLA VACC/PF 0.5 ML VIAL SUBCUT PRN (12:14)
[2018-06-24] MEDS ORDERED: SIMETHICONE 80 MG TAB.CHEW PO PRN (12:14)
[2018-06-24] MEDS ORDERED: DIPH/PERTUSS(ACELL)/TETANUS VAC/PF 0.5 ML SYR (>=10YO) IM PRN (12:14)
[2018-06-24] MEDS ORDERED: HYDROMORPHONE HCL INJ/PF 2 MG/ML AMPULE IV PRN (12:14)
[2018-06-24] MEDS ORDERED: RINGERS SOLUTION,LACTATED 1,000 ML IV PRN (12:14)
[2018-06-24] MEDS ORDERED: ACETAMINOPHEN 325 MG TABLET PO PRN (12:14)
[2018-06-24] MEDS: KETOROLAC TROMETHAMINE INJ/PF 30 MG/1 ML SDV IV SCH ×2 (13:03→21:17)
[2018-06-24] MEDS: OXYCODONE-ACETAMINOPHEN 5-325 MG TABLET PO PRN ×2 (18:31→23:13)
[2018-06-24] MEDS: DOCUSATE SODIUM 100 MG CAPSULE PO SCH (18:32)
[2018-06-24] MEDS: LABETALOL HCL 200 MG TABLET PO SCH (20:08)
[2018-06-24] MEDS ORDERED: LABETALOL HCL 200 MG TABLET PO SCH (22:00)
[2018-06-25] MEDS: OXYCODONE-ACETAMINOPHEN 5-325 MG TABLET PO PRN ×5 (03:14→22:22)
[2018-06-25] MEDS: KETOROLAC TROMETHAMINE INJ/PF 30 MG/1 ML SDV IV SCH (05:13)
[2018-06-25 05:38] LABS: HEMOGLOBIN 9.4 g/dL (12.0-15.5); MEAN CORPUSCULAR HEMOGLOBIN 29.6 pg (27.0-33.4); MEAN CORPUSCULAR HGB CONC 33.5 g/dL (32.0-36.0); MEAN CORPUSCULAR VOLUME 88 fl (80-97); PLATELET COUNT 144 10^3/uL (150-450); RED BLOOD COUNT 3.17 10^6/uL (3.72-5.28); RED CELL DISTRIBUTION WIDTH 16.1 % (11.5-14.0); WHITE BLOOD COUNT 9.4 10^3/uL (4.0-10.5)
[2018-06-25] MEDS: LABETALOL HCL 200 MG TABLET PO SCH ×2 (09:27→22:22)
[2018-06-25] MEDS: PRENATAL VITAMIN W DHA CAPSULE PO SCH (09:28)
[2018-06-25] MEDS: DOCUSATE SODIUM 100 MG CAPSULE PO SCH ×2 (09:28→18:08)
--- NOTE | 2018-06-25 11:01 | PDOC PROGRESS REPORT ---
Subjective-OB Progress Note for:: 06/25/18 Physical Exam (OB) Vital Signs: Temp Pulse Resp BP Pulse Ox 97.9 F 75 18 132/74 H 99 06/25/18 08:01 06/25/18 08:01 06/25/18 08:01 06/25/18 08:01 06/25/18 08:01 Intake & Output 06/24/18 06/25/18 06/26/18 06:59 06:59 06:59 Intake Total 2500 Output Total 2902.5 Balance -402.5 Weight 61.8 kg - PIH/Pre-Eclampsia DTR's: 2 + Clonus: Negative Headache: Absent Epigastric Pain: No Visual Changes: No - Incision: Dressing, Well Approximated Closure Type: Surgical Glue - Lochia Lochia Amount: Scant < 10 ml Lochia Color: Rubra/Red - Abdomen Description: Soft Hernia Present: No Bowel Sounds: Normoactive Flatus Presence: Absent Stool: No Fundal Description: Firm, Midline Fundal Height: u/u - u/2 Objective-Diagnostic Laboratory: 06/25/18 05:29 06/23/18 06/25/18 11:48 05:29 WBC 9.4 RBC 3.17 L Hgb 9.4 L Hct 28.0 L MCV 88 MCH 29.6 MCHC 33.5 RDW 16.1 H Plt Count 144 L Blood Type A POSITIVE Antibody Screen POSITIVE
[2018-06-25] MEDS: IBUPROFEN 800 MG TABLET PO SCH ×2 (12:27→18:08)
[2018-06-25] MEDS ORDERED: MEASLES,MUMPS&RUBELLA VACC/PF 0.5 ML VIAL SUBCUT PRN (15:30)
[2018-06-25] MEDS ORDERED: PROMETHAZINE HCL INJ 25 MG/1 ML VIAL IV PRN (15:30)
[2018-06-25] MEDS ORDERED: DIPH/PERTUSS(ACELL)/TETANUS VAC/PF 0.5 ML SYR (>=10YO) IM PRN (15:30)
[2018-06-26] MEDS: IBUPROFEN 800 MG TABLET PO SCH ×3 (01:04→11:50)
[2018-06-26] MEDS: OXYCODONE-ACETAMINOPHEN 5-325 MG TABLET PO PRN ×2 (03:27→07:40)
--- NOTE | 2018-06-26 09:56 | PDOC DISCHARGE SUMMARY ---
Final Diagnosis Discharge Date: 06/26/18 - POD #2, desires to go home today. A+, rubella immune , hx of GDM, bottlefeeding. Desires to go home today Discharge Data - Discharge Medication Prescriptions: Ibuprofen [Motrin 800 mg Tablet] 800 mg PO Q6 #60 tablet Oxycodone HCl/Acetaminophen [Percocet 5-325 mg Tablet] 1 tab PO Q4HP PRN #30 tablet PRN Reason: Home Medications: Ferrous Sulfate [Iron] 1 tab PO BID 01/10/17 Vit,Calc76/Iron/Folic [Prenatabs Rx Tablet] 1 tab PO DAILY 01/10/17 Tramadol HCl 50 mg PO BID PRN 01/24/17 Ibuprofen [Motrin 800 mg Tablet] 800 mg PO Q6 #60 tablet 06/26/18 Oxycodone HCl/Acetaminophen [Percocet 5-325 mg Tablet] 1 tab PO Q4HP PRN #30 tablet 06/26/18 Reason(s) for Admission: Ceasarean Section-Repeat Procedures: NST, Ultrasound Intrapartum Procedure(s): : Low Cervical, Transverse, Tubal Ligation - Diagnosis Test Laboratory: Temp Pulse Resp BP Pulse Ox 97.9 F 67 18 128/75 H 97 06/26/18 07:30 06/26/18 07:30 06/26/18 07:30 06/26/18 07:30 06/26/18 07:30 06/23/18 06/23/18 06/25/18 11:40 11:48 05:29 RBC 3.82 3.17 L Hgb 11.1 L 9.4 L Hct 33.2 L 28.0 L Urine Opiates Screen NEGATIVE - Discharge information/Instructions Discharge Activity: Activity As Tolerated, No Lifting Over 10 Pounds, Pelvic Rest Discharge Diet: As Tolerated, Regular Disposition: HOME, SELF-CARE Follow up with: [facility] in: 1, Weeks
[2018-06-26] MEDS: LABETALOL HCL 200 MG TABLET PO SCH (10:31)
[2018-06-26] MEDS: DOCUSATE SODIUM 100 MG CAPSULE PO SCH (10:31)
[2018-06-26] MEDS: PRENATAL VITAMIN W DHA CAPSULE PO SCH (10:31)
[2018-06-26 12:20] VITALS: BP 136/72
== END 2018-06-26 13:20 | disposition home or self-care (01) | DRG 784 ==
LOC: 2S 06-24 06:03
PROVIDERS: ADMIT Obstetrics & Gynecology; ATTEND Obstetrics & Gynecology
PROC: 0UL70CZ Occlusion of Bilateral Fallopian Tubes with Extraluminal Device, Open Approach (ICD-10-PCS; 2018-06-24)
PROC: 10D00Z1 Extraction of Products of Conception, Low, Open Approach (ICD-10-PCS; principal; 2018-06-24 09:15)
DX: O34.211 Maternal care for low transverse scar from previous cesarean delivery (principal); O10.92 Unspecified pre-existing hypertension complicating childbirth; N85.8 Other specified noninflammatory disorders of uterus; O24.425 Gestational diabetes mellitus in childbirth, controlled by oral hypoglycemic drugs; O99.344 Other mental disorders complicating childbirth; F41.8 Other specified anxiety disorders; Z3A.39 39 weeks gestation of pregnancy; Z37.0 Single live birth; Z30.2 Encounter for sterilization
CPT/HCPCS: 1961; 36415; 59025; 80307; 81001; 82962; 85025; 85027; 86850; 86870; 86900; 86901; 86920; 86922; 94799; J0131; J1170; J1885; J2250; J2270; J2405; J2550; J2590; J3010; J3490; J7120

== ENCOUNTER 2020-08-28 15:12 | Emergency (ER) | payer MEDICAID ==
[2020-08-28 15:17] VITALS: BP 131/91
--- NOTE | 2020-08-28 17:11 | ER Document Report ---
ED Medical Screen (RME) - General Stated Complaint: POSSIBLE OVERDOSE Time Seen by Provider: 08/28/20 16:50 Primary Care Provider: BOYD NELSON MD [Primary Care Provider] - Follow up as needed TRAVEL OUTSIDE OF THE [place] IN LAST 30 DAYS: No - HPI Notes: Patient is a 30 y/o female who presents with accidental overdose. Patient states she took 300mg of diphenhydramine over the course of 1 hour starting at 2:30PM. Patient states she has been fighting sleep so she has been taking OTC sleep medication which the main ingredient is diphenhydramine. Patient states it was accidental and denies intentional overdose, SI, HI and hallucinations. She reports drowsiness, dry mouth, and palpitations. - Related Data Allergies/Adverse Reactions: No Known Allergies Allergy (Verified 11/04/17 10:18) Past Medical History - Past Medical History Cardiac Medical History: Reports: Hx Hypertension - Denies: Hx Coronary Artery Disease, Hx Heart Attack, Hx Pulmonary Embolism, Hx Heart Murmur Pulmonary Medical History: Denies: Hx Bronchitis, Hx COPD, Hx Pneumonia Neurological Medical History: Denies: Hx Cerebrovascular Accident, Hx Migraine, Hx Seizures Endocrine Medical History: Reports: Hx Diabetes Mellitus Type 2 - Gestational diabetes. Denies: Hx Hyperthyroidism, Hx Hypothyroidism Renal/ Medical History: Reports: Hx Ovarian Cysts. Denies: Hx Ectopic , Hx Kidney Stones, Hx Peritoneal Dialysis, Hx Pelvic Inflammatory Disease Malignancy Medical History: Denies: Hx Breast Cancer, Hx Cervical Cancer, Hx Ovarian Cancer GI Medical History: Denies: Hx Cirrhosis, Hx Gastritis, Hx Gastroesophageal Reflux Disease, Hx Hiatal Hernia, Hx Ulcer, Hx Ulcerative Colitis Musculoskeltal Medical History: Denies Hx Arthritis, Denies Hx Fibromyalgia Skin Medical History: Denies Hx MRSA Psychiatric Medical History: Reports: Hx Depression Traumatic Medical History: Denies: Hx Fractures Infectious Medical History: Denies: Hx HIV Past Surgical History: Reports: Hx Section. Denies: Hx Pacemaker - Immunizations Hx Diphtheria, Pertussis, Tetanus Vaccination: Yes Physical Exam - Vital signs Vitals: Temp Pulse Resp BP Pulse Ox 97.6 F 126 H 16 131/91 H 100 08/28/20 15:14 08/28/20 15:14 08/28/20 15:14 08/28/20 15:14 08/28/20 15:14 Course - Re-evaluation Re-evalutation: 08/28/20 17:13 I spoke with poison control who recommends ordering a repeat tylenol level at 4 hours post-ingestion. She also recommends monitoring QRS widening on EKG and withholding any medications that would prolong QTC such as zofran and geodon. If QRS widening is seen, she recommend treating the patient with bicarb. I have greeted and performed a rapid initial assessment of this patient. A comprehensive ED assessment and evaluation of the patient, analysis of test results and completion of medical decision making process will be conducted by an additional ED providers. - Vital Signs Vital signs: Temp Pulse Resp BP Pulse Ox 97.6 F 126 H 16 131/91 H 100 08/28/20 15:14 08/28/20 15:14 08/28/20 15:14 08/28/20 15:14 08/28/20 15:14 Doctor's Discharge - Discharge Referrals: BOYD NELSON MD [Primary Care Provider] - Follow up as needed
[2020-08-28 17:41] LABS: APPEARANCE,URINE CLEAR; BILIRUBIN,URINE NEGATIVE (NEGATIVE); COLOR,URINE STRAW; GLUCOSE, URINE NEGATIVE (NEGATIVE); KETONES,URINE NEGATIVE (NEGATIVE); LEUKOCYTE ESTERASE,URINE NEGATIVE (NEGATIVE); NITRITE,URINE NEGATIVE (NEGATIVE); PROTEIN,URINE NEGATIVE (NEGATIVE); URINE SPECIFIC GRAVITY 1.009; UROBILINOGEN,URINE NEGATIVE mg/dL (<2.0)
--- NOTE | 2020-08-28 18:00 | EKG REPORT ---
SEVERITY:- ABNORMAL ECG - SINUS TACHYCARDIA PROBABLE LEFT ATRIAL ABNORMALITY PROBABLE LEFT VENTRICULAR HYPERTROPHY : Confirmed by: Dennise Dominguez MD 28-Aug-2020 17:59:33
[2020-08-28 18:08] LABS: URINE AMPHETAMINES SCREEN NEGATIVE; URINE BARBITURATES SCREEN NEGATIVE; URINE BENZODIAZEPINES SCREEN NEGATIVE; URINE COCAINE SCREEN NEGATIVE; URINE MARIJUANA (THC) SCREEN NEGATIVE; URINE METHADONE SCREEN NEGATIVE; URINE PHENCYCLIDINE SCREEN NEGATIVE
[2020-08-28 18:24] LABS: ALKALINE PHOSPHATASE 48 U/L (38-126); ANION GAP 8 (5-19); ASPARTATE AMINO TRANSFERASE 26 U/L (14-36); BILIRUBIN,DIRECT 0.2 mg/dL (0.0-0.4); BILIRUBIN,TOTAL 0.3 mg/dL (0.2-1.3); BLOOD UREA NITROGEN 14 mg/dL (7-20); CALCIUM 10.2 mg/dL (8.4-10.2); CARBON DIOXIDE 28 mmol/L (22-30); CHLORIDE 104 mmol/L (98-107); GLUCOSE 94 mg/dL (75-110); POTASSIUM 4.7 mmol/L (3.6-5.0); TOTAL PROTEIN 7.9 g/dL (6.3-8.2)
[2020-08-28 18:26] LABS: ACETAMINOPHEN < 10 ug/mL (10-30); ALCOHOL < 10 mg/dL (NONE DETECTED); SALICYLATE < 1.0 mg/dL (2.0-20.0)
[2020-08-28 18:45] LABS: ABSOLUTE BASOPHILS # (AUTO) 0.1 10^3/uL (0.0-0.2); ABSOLUTE EOSINOPHILS # (AUTO) 0.1 10^3/uL (0.0-0.6); ABSOLUTE LYMPHOCYTES (AUTO) 2.1 10^3/uL (0.5-4.7); ABSOLUTE MONOCYTES (AUTO) 0.4 10^3/uL (0.1-1.4); ABSOLUTE NEUT (AUTO) 4.3 10^3/uL (1.7-8.2); EOSINOPHILS % (AUTO) 1.1 % (0-6); HEMATOCRIT 36.9 % (36.0-47.0); HEMOGLOBIN 12.3 g/dL (12.0-15.5); LYMPHOCYTES % (AUTO) 30.5 % (13-45); MEAN CORPUSCULAR HEMOGLOBIN 30.7 pg (27.0-33.4); MEAN CORPUSCULAR HGB CONC 33.4 g/dL (32.0-36.0); MEAN CORPUSCULAR VOLUME 92 fl (80-97); MONOCYTES % (AUTO) 5.7 % (3-13); PLATELET COUNT 336 10^3/uL (150-450); RED BLOOD COUNT 4.01 10^6/uL (3.72-5.28); SEGMENTED NEUTROPHILS % (AUTO) 61.7 % (42-78); TOTAL CELLS COUNTED % (AUTO) 100 %
== END 2020-08-28 18:16 | disposition left against medical advice (07) ==
LOC: ER 15:12
DX: T45.0X1A Poisoning by antiallergic and antiemetic drugs, accidental (unintentional), initial encounter (principal)
CPT/HCPCS: 36415; 80053; 80307; 81001; 84703; 85025; 93005; 93010; 99281

== ENCOUNTER 2020-09-02 12:35 | Emergency (ER) | payer MEDICAID ==
--- NOTE | 2020-09-02 13:06 | ER Document Report ---
ED General - General TRAVEL OUTSIDE OF THE [place] IN LAST 30 DAYS: No <APRIL DOMINIQUE - Last Filed: 09/02/20 20:03> <SUJATHA DEJESUS - Last Filed: 09/03/20 11:36> <JOURDAN HUSSEIN Bg - Last Filed: 09/03/20 12:14> - General Chief Complaint: Overdose Stated Complaint: OVERDOSE Time Seen by Provider: 09/02/20 13:05 Primary Care Provider: [facility] [Outside] - Follow up in 3-5 days [facility] [Outside] - Follow up as needed [facility] [Outside] - Follow up as needed [facility] [Primary Care Provider] - Follow up as needed - [facility] Notes: 30-year-old female presents to the emergency room via EMS today for evaluation after she states she intentionally took 15 tablets of 10 mg lisinopril because she "cannot keep doing this anymore, I do not want to be doing this anymore" at 1145 this morning. Patient's been having some marital discord. She reports that her has been accusing her of cheating on him multiple times. Patient does endorse suicidal ideation with this intentional overdose, denies any homicidal ideation. Patient denies any chest pain, shortness of breath, fevers, chills, abdominal pain, nausea, vomiting, lightheadedness, dizziness, vision changes. Patient was prescribed lisinopril back in January by her primary care provider. She states she had not been taking them regularly. It was a 30 mg tablet prescription, and she believes she took 15 of them. Patient is tearful and weepy. Patient does have a history on August [id number] for accidental overdose of taking 300 mg of Benadryl, she did come to the emergency room but eloped prior to being seen or treated. Poison control was contacted. (APRIL DOMINIQUE) - Related Data Allergies/Adverse Reactions: No Known Allergies Allergy (Verified 11/04/17 10:18) Past Medical History - General Information source: Patient - Social History Smoking Status: Unknown if Ever Smoked Family History: Reviewed & Not Pertinent - Past Medical History Cardiac Medical History: Reports: Hx Hypertension - Denies: Hx Coronary Artery Disease, Hx Heart Attack, Hx Pulmonary Embolism, Hx Heart Murmur Pulmonary Medical History: Denies: Hx Bronchitis, Hx COPD, Hx Pneumonia Neurological Medical History: Denies: Hx Cerebrovascular Accident, Hx Migraine, Hx Seizures Endocrine Medical History: Reports: Hx Diabetes Mellitus Type 2 - Gestational diabetes. Denies: Hx Hyperthyroidism, Hx Hypothyroidism Renal/ Medical History: Reports: Hx Ovarian Cysts. Denies: Hx Ectopic , Hx Kidney Stones, Hx Peritoneal Dialysis, Hx Pelvic Inflammatory Disease Malignancy Medical History: Denies: Hx Breast Cancer, Hx Cervical Cancer, Hx Ovarian Cancer GI Medical History: Denies: Hx Cirrhosis, Hx Gastritis, Hx Gastroesophageal Reflux Disease, Hx Hiatal Hernia, Hx Ulcer, Hx Ulcerative Colitis Musculoskeletal Medical History: Denies Hx Arthritis, Denies Hx Fibromyalgia Skin Medical History: Denies Hx MRSA Psychiatric Medical History: Reports: Hx Depression Traumatic Medical History: Denies: Hx Fractures Infectious Medical History: Denies: Hx HIV Past Surgical History: Reports: Hx Section. Denies: Hx Pacemaker - Immunizations Hx Diphtheria, Pertussis, Tetanus Vaccination: Yes <CATINAAPRIL A - Last Filed: 09/02/20 20:03> Review of Systems - Review of Systems Constitutional: No symptoms reported EENT: No symptoms reported Cardiovascular: No symptoms reported Respiratory: No symptoms reported Gastrointestinal: No symptoms reported Genitourinary: No symptoms reported Female Genitourinary: No symptoms reported Musculoskeletal: No symptoms reported Skin: No symptoms reported Hematologic/Lymphatic: No symptoms reported Neurological/Psychological: Suicidal ideation <CATINAAPRIL A - Last Filed: 09/02/20 20:03> Physical Exam <APRIL DOMINIQUE A - Last Filed: 09/02/20 20:03> - Vital signs Vitals: Resp Pulse Ox 33 H 100 09/02/20 12:58 09/02/20 12:58 - Notes Notes: MEDICATIONS: I agree with the patient medications as charted by the RN. ALLERGIES: I agree with the allergies as charted by the RN. PAST MEDICAL HISTORY/PAST SURGICAL HISTORY: Reviewed and agree as charted by RN. SOCIAL HISTORY: Reviewed and agree as charted by RN. FAMILY HISTORY: No significant familial comorbid conditions directly related to patient complaint EXAM: Reviewed vital signs as charted by RN. PHYSICAL EXAMINATION: reviewed vital signs by RN GENERAL: Well-appearing, well-nourished and in no acute distress. HEAD: Atraumatic, normocephalic. EYES: Pupils equal round and reactive to light, extraocular movements intact, conjunctiva are normal. ENT: Nares patent, oropharynx clear without exudates. Moist mucous membranes. NECK: Normal range of motion, supple without lymphadenopathy LUNGS: Breath sounds clear to auscultation bilaterally and equal. No wheezes rales or rhonchi. HEART: Regular rate and rhythm without murmurs ABDOMEN: Soft, nontender, nondistended abdomen. No guarding, no rebound. No masses appreciated. Female : deferred Musculoskeletal: Normal range of motion, no pitting or edema. No cyanosis. NEUROLOGICAL: Cranial nerves grossly intact. Normal speech, normal gait. Normal sensory, motor exams PSYCH: Normal mood, normal affect. SKIN: Warm, Dry, normal turgor, no rashes or lesions noted. (APRIL DOMINIQUE) Course - Laboratory Results Result Diagrams: 09/02/20 13:00 09/02/20 13:00 Critical Laboratory Results Reviewed: No Critical Results - Radiology Results Critical Radiology Results Reviewed: No Critical Results - EKG Interpretation by Nm EKG shows normal: Sinus rhythm Rate: Normal <APRIL DOMINIQUE - Last Filed: 09/02/20 20:03> - Laboratory Results Result Diagrams: 09/02/20 13:00 09/02/20 13:00 <SUJATHA DEJESUS - Last Filed: 09/03/20 11:36> - Laboratory Results Result Diagrams: 09/02/20 13:00 09/02/20 13:00 <JOURDAN HUSSEIN - Last Filed: 09/03/20 12:14> - Re-evaluation Re-evalutation: 09/02/20 19:22 Afebrile, vital stable no distress. Nurses notes reviewed. CBC negative for leukocytosis or anemia, CMP negative for hepatic or renal dysfunction. Serum hCG negative. Urinalysis unremarkable except for hematuria. Urine tox screen negative. vital signs have been stable with blood pressure remaining around , heart rate in the 90's, 100% on room air. Poison control was contacted, they states that lisinopril does speak roughly 6 hours after ingestion. Patient ingested medication roughly at 1145. I think it is prudent to evaluate patient for at least 10 hours for any hypotension, dizziness, lightheadedness etc. Patient is on a 24-hour petition. Mental health has already been at bedside to evaluate patient. EKG negative for STEMI. Patient is on [employer] skills. Patient's blood pressure has not varied at all. She intermittently does go from slightly tachycardic when speaking with her sister who is in the room to heart rate in the 90s at rest. disposition given to PATT Schuler at 1999 (APRIL DOMINIQUE) - Vital Signs Vital signs: Temp Pulse Resp BP Pulse Ox 97.6 F 68 18 120/76 99 09/03/20 10:23 09/03/20 10:23 09/03/20 10:23 09/03/20 10:23 09/03/20 10:23 - Laboratory Results Laboratory Results Interpreted: 09/02/20 09/02/20 09/02/20 12:53 13:00 13:00 Hct 35.9 L RDW 14.2 H Glucose 121 H Urine Blood MODERATE H Salicylates < 1.0 L Acetaminophen < 10 L - EKG Interpretation by Me Additional EKG results interpreted by me: 09/02/20 19:28 EKG with a heart rate of 98, P axis 71, QRS 59, T axis 32. QT 344. Interpreted by ER supervising physician. No STEMI. No ST segment elevations (APRIL DOMINIQUE) Discharge <CATINAAPRIL A - Last Filed: 09/02/20 20:03> <SUJATHA DEJESUS - Last Filed: 09/03/20 11:36> <JOURDAN HUSSEIN - Last Filed: 09/03/20 12:14> - Discharge Clinical Impression: Intentional overdose of drug in tablet form Condition: Stable Disposition: HOME, SELF-CARE Additional Instructions: You have been evaluated both medical and behavioral health teams have been deemed appropriate for discharge. You are highly encouraged to follow-up with outpatient mental health services for individual therapy. Please work with your provider in discussing continued services such as marriage counseling and/or medication management if and when needed and appropriate. You have been vital local resource list of area providers including mobile crisis contact information. DEPRESSION: Your evaluation reveals that you have mental depression. While symptoms may be vague, they often include disturbance of sleep, fatigue, loss of appetite, and general loss of interest in life. While depression may be a side effect of drugs, or a reaction to a major change in your life, many cases have no known cause. If depression is acute, and related to a major loss in your life, you can expect it to clear completely with time. If you have been depressed a long time, are prone to repeated bouts of depression or low mood, or have been thinking of suicide, get help. Depression can be treated with anti-depressant medication and counselling. Long-term depression will often take a few weeks to clear, even with appropriate medication. Follow-up care is important. SUICIDAL IDEATION: Suicidal ideation is a common medical term for thoughts about suicide, which may be as detailed as a formulated plan, without the suicidal act itself. Although most people who undergo suicidal ideation do not commit suicide, some go on to make suicide attempts. The range of suicidal ideation varies greatly from fleeting to detailed planning, role playing, and unsuccessful attempts. While thoughts about suicide are common, most people do not carry out serious actions to commit suicide. Based upon your evaluation and discussion with you, we do not believe you are currently at risk to act upon your thoughts of suicide. You have agreed to return to the Emergency Department, at any time, if you feel inclined to act upon your suicidal thoughts. FOLLOW-UP CARE: If you have been referred to a physician for follow-up care, call the physicians office for an appointment as you were instructed or within the next two days. If you experience worsening or a significant change in your symptoms, notify the physician immediately or return to the Emergency Department at any time for re-evaluation. Referrals: [facility] [Primary Care Provider] - Follow up as needed [facility] [Outside] - Follow up as needed [facility] [Outside] - Follow up as needed [facility] [Outside] - Follow up in 3-5 days
--- NOTE | 2020-09-02 13:06 | PSYCHOLOGICAL NOTE ---
Psych Note - Psych Note Date seen by psych provider: 09/02/20 Time seen by psych provider: 13:00 - 1320 Psych Note: Reason for Consult; Reported overdose Patient presents to [facility] ED via EMS for reported overdose on lisinopril. Patient has been put on 24 hour petition for evaluation; paperwork is signed and placed on patient's chart. There is concern the patient had previously presented to [facility] ED 5 days ago on 08/28/2020 after reports of accidental overdose on 300mg of Benadryl then eloped prior to being treated. A consult for behavioral health was not submitted and there is no documentation of patient follow up for that visit. Patient reports intentional overdose because of marital discord. She reports her has accused her of cheating and she denies this. She reports he has her cell phone has has been going through it and saying she has downloaded programs to "make it glitch" and programs that hide other programs. Patient adamantly denies this reporting she does not even know technology that well. She reports she has tried taking her phone to [employer] and has put her hand on the bible; " I can't keep living like this...I have not slept for 2 weeks...I keep trying but don't know what to do to make him believe me....He doesn't read very well so when he does he gets thing backassward... He is obsessed with it...We have been together since I was 12 years old, I would never." Patient denies any previous events of intentional overdose. When asked about 5 days previous she reports that she "accidentally took too much sleeping medication because I have not slept in 2 weeks but I started to feel funny so came in...they had me sit in the lobby for over 4 hours so I just left." Patient is alert and orientated person place, time and circumstance. Patient's mood is dysphoric with tearful affect. Patient endorses suicidal ideation with intentional overdose. She denies homicidal ideation. Delusions are absent behaviors congruent with an intact reality based presentation i.e. organized and linear thought process. Eye contact was fair. Conversational speech is tearful however easily understood. Intellectual abilities appear to be average range. Attention and concentration are fair. Insight, judgment, impulse control is poor. Impression\\plan: Patient is recommended for 24 petition for evaluation; paperwork is signed and placed in patient's chart. Patient presents after intentional overdose on lisinopril. Patient identifies marital discord as trigger. Patient is currently not medically cleared. Dr. Molina was consulted to care management of this patient; attending physicians in agreement with recommendations and disposition.
[2020-09-02 13:21] LABS: APPEARANCE,URINE CLEAR; BILIRUBIN,URINE NEGATIVE (NEGATIVE); COLOR,URINE YELLOW; GLUCOSE, URINE NEGATIVE (NEGATIVE); KETONES,URINE NEGATIVE (NEGATIVE); LEUKOCYTE ESTERASE,URINE NEGATIVE (NEGATIVE); NITRITE,URINE NEGATIVE (NEGATIVE); PROTEIN,URINE NEGATIVE (NEGATIVE); URINE SPECIFIC GRAVITY 1.008; UROBILINOGEN,URINE NEGATIVE mg/dL (<2.0)
[2020-09-02 13:21] LABS: ABSOLUTE BASOPHILS # (AUTO) 0.1 10^3/uL (0.0-0.2); ABSOLUTE EOSINOPHILS # (AUTO) 0.1 10^3/uL (0.0-0.6); ABSOLUTE LYMPHOCYTES (AUTO) 2.3 10^3/uL (0.5-4.7); ABSOLUTE MONOCYTES (AUTO) 0.6 10^3/uL (0.1-1.4); ABSOLUTE NEUT (AUTO) 3.1 10^3/uL (1.7-8.2); BASOPHILS % (AUTO) 0.9 % (0-2); EOSINOPHILS % (AUTO) 1.9 % (0-6); HEMATOCRIT 35.9 % (36.0-47.0); HEMOGLOBIN 12.3 g/dL (12.0-15.5); LYMPHOCYTES % (AUTO) 37.9 % (13-45); MEAN CORPUSCULAR HGB CONC 34.2 g/dL (32.0-36.0); MEAN CORPUSCULAR VOLUME 91 fl (80-97); MONOCYTES % (AUTO) 9.2 % (3-13); PLATELET COUNT 392 10^3/uL (150-450); RED BLOOD COUNT 3.96 10^6/uL (3.72-5.28); RED CELL DISTRIBUTION WIDTH 14.2 % (11.5-14.0); SEGMENTED NEUTROPHILS % (AUTO) 50.1 % (42-78); TOTAL CELLS COUNTED % (AUTO) 100 %; WHITE BLOOD COUNT 6.2 10^3/uL (4.0-10.5)
[2020-09-02 13:32] LABS: URINE AMPHETAMINES SCREEN NEGATIVE; URINE BARBITURATES SCREEN NEGATIVE; URINE BENZODIAZEPINES SCREEN NEGATIVE; URINE COCAINE SCREEN NEGATIVE; URINE MARIJUANA (THC) SCREEN NEGATIVE; URINE METHADONE SCREEN NEGATIVE; URINE PHENCYCLIDINE SCREEN NEGATIVE
[2020-09-02 13:39] LABS: ACETAMINOPHEN < 10 ug/mL (10-30); ALCOHOL < 10 mg/dL (NONE DETECTED); ALKALINE PHOSPHATASE 48 U/L (38-126); ANION GAP 8 (5-19); ASPARTATE AMINO TRANSFERASE 22 U/L (14-36); BILIRUBIN,DIRECT 0.2 mg/dL (0.0-0.4); BILIRUBIN,TOTAL 0.4 mg/dL (0.2-1.3); BLOOD UREA NITROGEN 10 mg/dL (7-20); CARBON DIOXIDE 28 mmol/L (22-30); CHLORIDE 103 mmol/L (98-107); GLUCOSE 121 mg/dL (75-110); SALICYLATE < 1.0 mg/dL (2.0-20.0); TOTAL PROTEIN 8.1 g/dL (6.3-8.2)
[2020-09-03] MEDS ORDERED: TRAMADOL HCL 50 MG TABLET PO ONE (09:12)
--- NOTE | 2020-09-03 11:59 | PSYCHOLOGICAL NOTE ---
Psych Note - Psych Note Date seen by psych provider: 09/03/20 Time seen by psych provider: 10:50 Psych Note: Reason for Consult: Reported overdose Consent permissions: patient's mother joined at bedside per patient's request to build plan of care Patient presents to [facility] ED via EMS for reported overdose on lisinopril. Check in conducted with patient: His mood is euthymic with congruent affect as evidenced by smiling laughing engaging with clinician. Patient denies any thoughts of wanting to harm herself. She discloses that she believes she took the medication as a "cry for help." Patient has been working with family to problem solve and address current stressors. Patient identifies wanting individual therapy and then once appropriate marriage counseling. Patient provides consent for mother to join to build plan of care. Patient's mother confirms she will be part of patient's plan of care i.e. no access to medications weapons and follows through with mental health recommendations. Patient's mother reports she has no concerns with the patient returning home. Patient's family has been working with both the patient and the patient's to identify the need for life skills coordinator when discussing concerns. Clinical Presentation: intentional overdose martial discord IVC Criteria per [place] GS 122C Dangerous to others Within the relevant past the individual No has inflicted or attempted to inflict or threatened to inflict serious bodily harm on another AND No that there is a reasonable probability that this conduct will be repeated as there is an absence of supervision or structure to prevent. OR No has acted in such a way as to create a substantial risk of serious bodily harm to another AND No that there is a reasonable probability that this conduct will be repeated as there is an absence of supervision or structure to prevent. OR No has engaged in extreme destruction of property AND NO that there is a reasonable probability that this conduct will be repeated as there is an absence of supervision or structure to prevent. Previous episodes of dangerousness to others, when applicable, may be considered when determining reasonable probability of future dangerous conduct. Clear, cogent, and convincing evidence that an individual has committed a homicide in the relevant past is prima facie evidence of dangerousness to others. Dangerous to self Within the relevant past the individual has done any of the following: acted in such a way as to show ALL of the following: No The individual would be unable without care, supervision, and the continued assistance of others not otherwise available, to exercise self-con trol, judgment, and discretion in the conduct of the individual's daily responsibilities and social relations or to satisfy the individual's need for nourishment, personal or medical care, penitentiary, or self-protection and safety. AND No There is a reasonable probability of the individual suffering serious physical debilitation within the near future unless adequate treatment is given. A showing of behavior that is grossly irrational, of actions that the individual is unable to control, of behavior that is grossly inappropriate to the situation, or of other evidence of severely impaired insight and judgment shall create a prima facie inference that the individual is unable to care for himself or herself. OR yes has attempted suicide or threatened suicide AND No that there is a reasonable probability of suicide unless adequate treatment is given as there is an absence of supervision or structure to prevent suicide of patient who has made an attempt, serious gesture or threat. Patient denies any thoughts of wanting to harm herself. She identifies that she marital discord led to her actions which she believes was a "cry for help." Patient's family has been engaging with the patient to build plan of care which includes therapy and family members ensuring no access to medications weapons and that both patient and patient's follow through with mental health recommendations. OR No has mutilated himself or herself or attempted to mutilate himself or herself AND No that there is a reasonable probability of serious self-mutilation unless adequate treatment is given as there is an absence of supervision or structure to prevent. NOTE: Previous episodes of dangerousness to self, when applicable, may be considered when determining reasonable probability of physical debilitation, suicide, or self-mutilation. Impression\\plan: Patient is recommended for rescind of 24-hour petition for evaluation and is cleared from acute psychiatric services; paperwork is signed and placed in patient's chart. Patient no longer is having thoughts of wanting to harm herself. Patient states that she believes her actions were a "cry for help" and that she never wanted to . Patient demonstrated good insight and judgment and done a fine plan of care to include individual therapy and then once appropriate couples counseling. Patient's mother it agrees to be part of patient's plan of care i.e. no access to medications weapons and follow through with mental health recommendations. Patient's mother reports she has no concerns with the patient returning home. Resource information has been provided to the patient with the understanding she needs to make an appointment in the next 3 to [address] Molina was consulted to care management of this patient; attending physicians in agreement with recommendations and disposition.
--- NOTE | 2020-09-03 12:13 | ER Document Report ---
Doctor's Note Notes: 09/03/20 12:11 30-year-old female evaluated by myself this morning prior to discharge by mental health. Came in for overdose of lisinopril. Patient endorses no complaints and is set up with community [facility] for outpatient management. Patient will be discharged per psych recommendations.
[2020-09-03 12:30] VITALS: BP 121/87
--- NOTE | 2020-09-03 20:31 | EKG REPORT ---
SEVERITY:- NORMAL ECG - SINUS RHYTHM : Confirmed by: Dennise Dominguez MD 03-Sep-2020 20:30:45
== END 2020-09-03 12:30 | disposition home or self-care (01) ==
LOC: ER 12:35
DX: T46.4X2A Poisoning by angiotensin-converting-enzyme inhibitors, intentional self-harm, initial encounter (principal); Z63.0 Problems in relationship with spouse or partner; Z79.899 Other long term (current) drug therapy
CPT/HCPCS: 36415; 80053; 80307; 81001; 84703; 85025; 93005; 93010; 99285